=== PATIENT | male | born 1995 | race Caucasian/White ===

== ENCOUNTER 2016-06-14 16:28 | Emergency (ER) | payer OTHER ==
--- NOTE | 2016-06-14 17:54 | DIAGNOSTIC IMAGING REPORT ---
PROCEDURE: XR CHEST 2 VIEW INDICATION: CHEST PAIN TECHNIQUE: PA and lateral views. COMPARISON: None. FINDINGS: Lungs are clear. Heart and mediastinum are normal. Thorax is normal. IMPRESSION: 1. Negative chest.
--- NOTE | 2016-06-14 18:36 | ED ORDER SUMMARY ---
..... Patient: ANA SALINAS OrderSheet [facility] VisitID: [id number] [place] [address] 21y, M Registration Date/Time: 06/14/2016 ORDER SHEET Weight: 74.8 kg (stated) Allergies: No Known Drug Allergy GENERAL ORDERS: Chest 2V Urgent (17:10 06/14/2016 HBivens A.R.N.P.) (Ack 17:24 LNations ER Tech1) (17:34 KKnebel R.N.) EKG - ER Stat (17:10 06/14/2016 HBivens A.R.N.P.) (17:24 LNations ER Tech1) MEDICATION ORDERS: IV FLUIDS: IV Saline Lock (17:30 06/14/2016 DDean R.N. per protocol) (17:31 DDean R.N.) Toradol IV 30 mg (NOW) (17:52 06/14/2016 DDean R.N. verbal order read back to HBivens A.R.N.P.) (Ack 17:52 DDean R.N.) (17:58 DDean R.N.) ORDER SHEET NOTES: [Electronically signed by Sera Lancaster R.N. (18:49 06/14/2016)] [Electronically signed by Megan Mccauley.R.N.P. (21:15 06/14/2016)] [Electronically locked/signed by Sera Lancaster R.N. (18:49 06/14/2016)]
--- NOTE | 2016-06-14 18:36 | ED ORDER SUMMARY ---
..... Patient: ANA SALINAS OrderSheet [facility] VisitID: [id number] [place] [address] 21y, M Registration Date/Time: 06/14/2016 ORDER SHEET Weight: 74.8 kg (stated) Allergies: No Known Drug Allergy GENERAL ORDERS: Chest 2V Urgent (17:10 06/14/2016 HBivens A.R.N.P.) (Ack 17:24 LNations ER Tech1) (17:34 KKnebel R.N.) EKG - ER Stat (17:10 06/14/2016 HBivens A.R.N.P.) (17:24 LNations ER Tech1) MEDICATION ORDERS: IV FLUIDS: IV Saline Lock (17:30 06/14/2016 DDean R.N. per protocol) (17:31 DDean R.N.) Toradol IV 30 mg (NOW) (17:52 06/14/2016 DDean R.N. verbal order read back to HBivens A.R.N.P.) (Ack 17:52 DDean R.N.) (17:58 DDean R.N.) ORDER SHEET NOTES: [Electronically signed by Sera Lancaster R.N. (18:49 06/14/2016)] [Electronically signed by Megan Mccauley.R.N.P. (21:15 06/14/2016)] [Electronically locked/signed by Sera Lancaster R.N. (18:49 06/14/2016)]
--- NOTE | 2016-06-14 18:36 | ED CLINICAL REPORT ---
Clinical Report - Physicians/Mid Levels [facility] [address] [place] [address] 06/14/2016 16:29 Patient: ANA SALINAS Time Seen: 16:40; initial patient contact, initial documentation, patient care assumed. Arrived- By private vehicle. Historian- patient. HISTORY OF PRESENT ILLNESS Chief Complaint: CHEST PAIN and DISCOMFORT. At its maximum, severity described as moderate. When seen in the E.D., severity described as moderate. Modifying factors- worsened by movement and deep breaths. Not relieved by anything. This started just prior to arrival and is still present. It is described as pressure, tightness and "pain" and it is described as located in the left chest area and radiating to the left upper extremity. No nausea, vomiting, difficulty breathing or diaphoresis. Similar symptoms previously: None. Recent medical care: Not recently seen/assessed. REVIEW OF SYSTEMS No fever, cough or pedal edema. All systems otherwise negative, except as recorded above. PAST HISTORY See nurses notes. PROBLEMS: Asthma. --16:29 Faiza Barbosa R.N. ADDITIONAL SURGERIES: no known surgeries. SOCIAL HISTORY Light tobacco smoker. Occasional alcohol use. History of occasional drug use: marijuana. No recent travel. Is a local resident. FAMILY HISTORY Negative. ADDITIONAL NOTES The nursing notes have been reviewed with agreement regarding the chief complaint, HPI, ROS, PMH and patient medications and allergies. PHYSICAL EXAM Vital Signs: 06/14/2016 16:26 BP: 135/85. HR: 74. RR: 18. O2 saturation: 99%. Temp: 98.4 F. Pain level now: 8/10. Have been reviewed as normal and appear to be correct. Appearance: Alert. Oriented X3. No acute distress. Eyes: Pupils equal, round and reactive to light. Eyes normal inspection. ENT: Ears normal. Nose normal. Pharynx normal. Neck: Normal inspection. Neck supple. CVS: Normal heart rate and rhythm. Heart sounds normal. Pulses normal. Respiratory: No respiratory distress. Chest tender. Chest pain reproducible with palpation of the costal cartilage, costochondral junction, sternum, anterior and lateral chest wall and lateral ribs, with movement of the trunk and with deep breathing. Breath sounds normal. Abdomen: Soft and nontender. Back: Normal external inspection. Skin: Skin warm and dry. Normal skin color. No rash. Normal skin turgor. Extremities: Extremities exhibit normal ROM. No lower extremity edema. Neuro: Oriented X 3. No motor deficit. No sensory deficit. LABS, X-RAYS, AND EKG EKG: EKG time: (1716). No acute process. No acute ischemia. Normal EKG. Rate: 77. Normal EKG. The study has been interpreted contemporaneously by me (and dr rodrigues). The EKG appears to be a good tracing. Interpretation time: 172. Chest X-ray: Normal Chest X-Ray. (IMPRESSION: 1. Negative chest. Electronically Final signed by:Harjit Martínez MD 06/14/2016 5:54:39 PM). The X-rays were interpreted by the radiologist and contemporaneously by me. PROGRESS AND PROCEDURES Patient counseled in person regarding the patient's stable condition, test results and diagnosis. 18:33. Differential Diagnosis: I considered muscle strain, costochondritis, myositis, pleurisy, myocardial infarction, intermediate coronary syndrome, unstable angina, angina, aortic dissection, mitral valve prolapse, pericarditis, pulmonary embolism, pneumonia, gastroesophageal reflux disease, esophagitis and esophageal spasm as a possible cause of chest pain in this patient. This is a partial list of diagnoses considered. (substance abuse). Above considerations are based on history, physical exam, X-Ray data and EKG. Differential diagnosis was discussed with patient. Disposition: Discharged home in good and improved condition (18:35). Condition: good and stable. CLINICAL IMPRESSION Chest wall pain .12 lead EKG performed. INSTRUCTIONS Do not work tomorrow. Warnings: GENERAL WARNINGS: Return or contact your physician immediately if your condition worsens or changes unexpectedly, if not improving as expected, or if other problems arise. SPECIFICALLY, return if you develop chest, neck, jaw, shoulder, arm, or back pain, difficulty breathing, a fluttering sensation in your chest, lightheadedness, fainting, excessive fatigue, or sudden sweating. Prescription Medications: Naproxen 500 mg tablets: take 1 orally every 12 hours as needed for pain. Dispense twenty (20). No refills. Follow-up: Follow up with your doctor in about two days even if well. Call for an appointment. Summary of care provided to patient. Understanding of the discharge instructions verbalized by patient. (Electronically signed by Megan Mccauley A.R.N.P. 06/14/2016 21:15)
--- NOTE | 2016-06-14 18:36 | ED NURSING NOTES ---
Clinical Report - Nurses [facility] [address] [place] [address] 06/14/2016 16:29 Patient: ANA SALINAS TRIAGE Triage time 16:26. Acuity: LEVEL 3. Chief Complaint: CHEST PAIN. Alert. No acute distress. NATA COMA SCORE: Nata Coma Scale: 15- eyes open spontaneously (4); best verbal response- oriented x 4 (5); best motor response- obeys commands (6). --16:32 Faiza Barbosa R.N. 16:26 06/14/16. BP: 135/85. HR: 74. RR: 18. O2 saturation: 99% on room air. Temp: 98.4 F (oral). Pain level now: 8/10. --16:32 Faiza Barbosa R.N. Weight: 74.8 kg stated. Height/Length: 66 inches Per Patient. BMI: 26.6. --16:30 Faiza Barbosa R.N. Medications None. --16:28 Faiza Barbosa R.N. Medication/allergy information source: the patient. --16:32 Faiza Barbosa R.N. Allergies No Known Drug Allergy. --16:28 Faiza Barbosa R.N. History Arrived by private vehicle. Historian: patient. Primary physician (none). Describes the quality as tightness and (constant). Relates location as in the left chest area and left arm. Notes pain level as 8/10 on arrival. Provoking / relieving factors: not worsened by anything. Relieved by nothing. ( had caffeine overdose about a year ago with similar symptoms, had some zipfizz to drink). The patient has had difficulty breathing. No sweating episodes, nausea or vomiting. SOCIAL HX: Smoker- current status unknown (no). Occasional alcohol use. History of drug use: marijuana. (on tuesday). FALL RISK ASSESSMENT: Fall risk assessment completed. No fall risk identified. FUNCTIONAL ASSESSMENT: Functional assessment: no impairments noted. LEARNING NEEDS ASSESSMENT: The learning needs assessment revealed no barriers. --16:32 Faiza Barbosa R.N. PROBLEMS: Asthma. --16:29 Faiza Barbosa R.N. ADDITIONAL SURGERIES: no known surgeries. Assessment GENERAL / NEURO / PSYCH: The patient is awake and alert, is oriented and cooperative and appears anxious. RESPIRATORY: Respirations not labored. SKIN: Skin is warm and dry. --16:32 Faiza Barbosa R.N. Interventions ID band on patient. To treatment room. --16:32 Faiza Barbosa R.N. PHYSICAL ASSESSMENT 16:33 06/14/16. To room via stretcher. Patient gowned. GENERAL / NEURO / PSYCH: The patient is awake and alert, is oriented and cooperative and appears anxious. He has poor eye contact. RESPIRATORY: Respirations not labored. CVS: Cardiac rhythm: sinus rhythm. SKIN: Skin is warm and dry. --16:34 Faiza Barbosa R.N. NURSING PROGRESS NOTES 16:33 06/14/16. advertising copywriter, pulse oximeter and NIBP monitor placed on patient. Patient gowned. Head of bed elevated. Call light placed in reach. Side rails up x 2. Bed placed in lowest position. Brakes of bed on. --16:34 Faiza Barbosa R.N. 16:35. Care transferred and report received. --16:52 Sera Lancaster R.N. 16:45. Patient ID band checked for patient name and birthdate: patient confirmed urine collected with return of yellow-colored clear urine; sample sent to lab for urinalysis and culture. Specimen labeled in the presence of the patient. --16:52 Sera Lancaster R.N. 16:58. Assisted patient with urinal (voided 500 ml). --16:58 Faiza Barbosa R.N. 17:02 06/14/2016 Site #1 started via IV in the right antecubital space with an 20g angiocath, with aseptic technique and good blood return; one attempt. Blood drawn: rainbow set. Labeled in the presence of the patient and sent to the lab. Saline lock flushed with 10 mL saline. --17:02 Faiza Barbosa R.N. 17:20. Patient transported to radiology by stretcher with tech. --17:30 Sera Lancaster R.N. 17:31 06/14/16. Patient returned from radiology by stretcher with tech. --17:31 Sera Lancaster R.N. EKG time: (1716). EKG was ordered, performed by a tech and shown to the ED physician. --17:39 Aundrea Merry, Tech1 17:48 06/14/16. BP: 133/71. HR: 77. O2 saturation: 100%. Pain level now: 10/18. --17:49 Lori Montoya R.N. 17:53 06/14/2016 Toradol IVP 30 mg given over 1 minute(s) via site #1. IV patency established. IV site checked: no pain, redness, or swelling. IV flushed thoroughly pre- and post-medication administration. IVP given by RN. --17:58 Sera Lancaster R.N. 17:55. ( Pt given meds for shoulder pain, family at bedside.). --17:59 Sera Lancaster R.N. 18:30 06/14/2016 Site #1 removed upon discharge. Bandaid applied. --18:49 Sera Lancaster R.N. 18:30 06/14/2016 IV Saline Lock Drip IV Discontinued: bag #1 STOPPED upon discharge. Total amount infused: 0 mL. IV patency established. IV site checked: no pain, redness, or swelling. IV flushed thoroughly. --18:48 Sera Lancaster R.N. DISPOSITION / DISCHARGE 18:40. Condition at departure: improved and stable. No learning barriers present. Discharge instructions provided and reviewed with the patient and family. Reviewed medication(s) (naproxyn). Patient and family verbalized understanding. Written instructions provided in Burkinan. The patient was discharged home and accompanied by family. He left the Emergency Department ambulatory and via private vehicle. Family member driving. --18:48 Sera Lancaster R.N. 18:46 06/14/16. BP: 124/64. HR: 72. RR: 18. O2 saturation: 99%. Temp: deferred. Pain level now: 07/19. --18:48 Sera Lancaster R.N. Locked/Released at 06/14/2016 18:49 by Sera Lancaster R.N.
--- NOTE | 2016-06-14 21:16 | ED MED RECONCILIATION SUMMARY ---
Patient: ANA SALINAS Medication Reconciliation Report [facility] VisitID: [id number] [place] [address] 21y, M Registration Date/Time: 06/14/2016 Weight: 74.8 kg Height/Length: 66 in. BMI: 26.6 ALLERGIES: No Known Drug Allergy The patient's Home Medications are listed below: NONE. The source(s) of the original Home Medication information: patient The following Medications were given to the patient in the Emergency Department: Toradol [IVP] IVP 30 mg, administered: 06/14/2016 5:53:00 PM The following Medications were prescribed to the patient: Naproxen 500 mg tablets: take 1 orally every 12 hours as needed for pain. Dispense twenty (20). No refills. -- Megan Mccauley A.R.N.P.
--- NOTE | 2016-06-14 21:16 | ED MED RECONCILIATION SUMMARY ---
Patient: ANA SALINAS Medication Reconciliation Report [facility] VisitID: [id number] [place] [address] 21y, M Registration Date/Time: 06/14/2016 Weight: 74.8 kg Height/Length: 66 in. BMI: 26.6 ALLERGIES: No Known Drug Allergy The patient's Home Medications are listed below: NONE. The source(s) of the original Home Medication information: patient The following Medications were given to the patient in the Emergency Department: Toradol [IVP] IVP 30 mg, administered: 06/14/2016 5:53:00 PM The following Medications were prescribed to the patient: Naproxen 500 mg tablets: take 1 orally every 12 hours as needed for pain. Dispense twenty (20). No refills. -- Megan Mccauley A.R.N.P.
--- NOTE | 2016-06-14 21:16 | ED DISCHARGE INSTRUCTIONS ---
Patient: ANA SALINAS General Instructions [facility] VisitID: [id number] [place] [address] 21y, M Registration Date/Time: 06/14/2016 Chest wall pain .12 lead EKG performed. INSTRUCTIONS Do not work tomorrow. Warnings: GENERAL WARNINGS: Return or contact your physician immediately if your condition worsens or changes unexpectedly, if not improving as expected, or if other problems arise. SPECIFICALLY, return if you develop chest, neck, jaw, shoulder, arm, or back pain, difficulty breathing, a fluttering sensation in your chest, lightheadedness, fainting, excessive fatigue, or sudden sweating. Prescription Medications: Naproxen 500 mg tablets: take 1 orally every 12 hours as needed for pain. Dispense twenty (20). No refills. Follow-up: Follow up with your doctor in about two days even if well. Call for an appointment. Summary of care provided to patient. Understanding of the discharge instructions verbalized by patient. ADDITIONAL INFORMATION Chest Wall Pain: Costochondritis The chest pain that you have had today is caused by Costochondritis. This condition is due to an inflammation of the cartilage joining the ribs to the breastbone. It is not caused by heart or lung problems. Although the exact cause for costochondritis is not known, it often occurs during times of emotional stress. It can be painful, but it is not dangerous. It usually disappears within one to two weeks, but may recur. Rarely, a more serious condition may cause symptoms similar to costochondritis; therefore, watch for the warning signs listed below. Home Care: If you feel that emotional stress is a cause of your condition, try to identify sources of that stress. It may not be obvious! Learn ways to deal with the stress in your life such as regular exercise, muscle relaxation, meditation, or simply taking time out for yourself. For more information about this, consult your doctor or go to a local bookstore and review books and tapes available on the subject of stress reduction. You may use acetaminophen (Tylenol) or ibuprofen (Motrin, Advil) to control pain, unless another pain medicine was prescribed. [ NOTE: If you have liver disease or ever had a stomach ulcer, talk with your doctor before using these medicines.] The use of heat (hot wet compress or heating pad) with or without local analgesic creams (Deep Heat Rub, Teddy Chery) will be helpful to reduce pain. Follow Up with your doctor as directed or sooner if you do not start to improve within the next two days. Get Prompt Medical Attention if any of the following occur: A change in the type of pain: if it feels different, becomes more severe, lasts longer, or spreads into your shoulder, arm, neck, jaw or back Shortness of breath or increased pain with breathing Weakness, dizziness, or fainting Cough with dark colored sputum (phlegm) or blood Abdominal pain Dark red or black stools Fever of 100.4F (38C) or higher, or as directed by your healthcare provider Naproxen Sodium Oral tablet What is this medicine? NAPROXEN (na PROX en) is a non-steroidal anti-inflammatory drug (NSAID). It is used to reduce swelling and to treat pain. This medicine may be used for dental pain, headache, or painful monthly periods. It is also used for painful joint and muscular problems such as arthritis, tendinitis, bursitis, and gout. How should I use this medicine? Take this medicine by mouth with a glass of water. Follow the directions on the prescription label. Take it with food if your stomach gets upset. Try to not lie down for at least 10 minutes after you take it. Take your medicine at regular intervals. Do not take your medicine more often than directed. Long-term, continuous use may increase the risk of heart attack or stroke. A special MedGuide will be given to you by the pharmacist with each prescription and refill. Be sure to read this information carefully each time. Talk to your senior software quality analyst regarding the use of this medicine in children. Special care may be needed. What side effects may I notice from receiving this medicine? Side effects that you should report to your doctor or health transitional care nurse as soon as possible: black or bloody stools, blood in the urine or vomit blurred vision chest pain difficulty breathing or wheezing nausea or vomiting severe stomach pain skin rash, skin redness, blistering or peeling skin, hives, or itching slurred speech or weakness on one side of the body swelling of eyelids, throat, lips unexplained weight gain or swelling unusually weak or tired yellowing of eyes or skin Side effects that usually do not require medical attention (report to your doctor or health transitional care nurse if they continue or are bothersome): constipation headache heartburn What may interact with this medicine? alcohol aspirin cidofovir diuretics lithium methotrexate other drugs for inflammation like ketorolac or prednisone pemetrexed probenecid warfarin What if I miss a dose? If you miss a dose, take it as soon as you can. If it is almost time for your next dose, take only that dose. Do not take double or extra doses. Where should I keep my medicine? Keep out of the reach of children. Store at room temperature between 15 and 30 degrees C (59 and 86 degrees F). Keep container tightly closed. Throw away any unused medicine after the expiration date. What should I tell my health care provider before I take this medicine? They need to know if you have any of these conditions: asthma cigarette smoker drink more than 3 alcohol containing drinks a day heart disease or circulation problems such as heart failure or leg edema (fluid retention) high blood pressure kidney disease liver disease stomach bleeding or ulcers an unusual or allergic reaction to naproxen, aspirin, other NSAIDs, other medicines, foods, dyes, or preservatives or trying to get breast-feeding What should I watch for while using this medicine? Tell your doctor or health transitional care nurse if your pain does not get better. Talk to your doctor before taking another medicine for pain. Do not treat yourself. This medicine does not prevent heart attack or stroke. In fact, this medicine may increase the chance of a heart attack or stroke. The chance may increase with longer use of this medicine and in people who have heart disease. If you take aspirin to prevent heart attack or stroke, talk with your doctor or health transitional care nurse. Do not take other medicines that contain aspirin, ibuprofen, or naproxen with this medicine. Side effects such as stomach upset, nausea, or ulcers may be more likely to occur. Many medicines available without a prescription should not be taken with this medicine. This medicine can cause ulcers and bleeding in the stomach and intestines at any time during treatment. Do not smoke cigarettes or drink alcohol. These increase irritation to your stomach and can make it more susceptible to damage from this medicine. Ulcers and bleeding can happen without warning symptoms and can cause . You may get drowsy or dizzy. Do not drive, use machinery, or do anything that needs mental alertness until you know how this medicine affects you. Do not stand or sit up quickly, especially if you are an older patient. This reduces the risk of dizzy or fainting spells. This medicine can cause you to bleed more easily. Try to avoid damage to your teeth and gums when you brush or floss your teeth. You have been given the following additional information: Chest Wall Pain, Costochondritis Naproxen Sodium Oral tablet Do not work tomorrow. (Electronically signed by Megan Mccauley A.R.N.P. 06/14/2016 21:15)
--- NOTE | 2016-06-14 21:16 | ED DISCHARGE INSTRUCTIONS ---
Patient: ANA SALINAS General Instructions [facility] VisitID: [id number] [place] [address] 21y, M Registration Date/Time: 06/14/2016 Chest wall pain .12 lead EKG performed. INSTRUCTIONS Do not work tomorrow. Warnings: GENERAL WARNINGS: Return or contact your physician immediately if your condition worsens or changes unexpectedly, if not improving as expected, or if other problems arise. SPECIFICALLY, return if you develop chest, neck, jaw, shoulder, arm, or back pain, difficulty breathing, a fluttering sensation in your chest, lightheadedness, fainting, excessive fatigue, or sudden sweating. Prescription Medications: Naproxen 500 mg tablets: take 1 orally every 12 hours as needed for pain. Dispense twenty (20). No refills. Follow-up: Follow up with your doctor in about two days even if well. Call for an appointment. Summary of care provided to patient. Understanding of the discharge instructions verbalized by patient. ADDITIONAL INFORMATION Chest Wall Pain: Costochondritis The chest pain that you have had today is caused by Costochondritis. This condition is due to an inflammation of the cartilage joining the ribs to the breastbone. It is not caused by heart or lung problems. Although the exact cause for costochondritis is not known, it often occurs during times of emotional stress. It can be painful, but it is not dangerous. It usually disappears within one to two weeks, but may recur. Rarely, a more serious condition may cause symptoms similar to costochondritis; therefore, watch for the warning signs listed below. Home Care: If you feel that emotional stress is a cause of your condition, try to identify sources of that stress. It may not be obvious! Learn ways to deal with the stress in your life such as regular exercise, muscle relaxation, meditation, or simply taking time out for yourself. For more information about this, consult your doctor or go to a local bookstore and review books and tapes available on the subject of stress reduction. You may use acetaminophen (Tylenol) or ibuprofen (Motrin, Advil) to control pain, unless another pain medicine was prescribed. [ NOTE: If you have liver disease or ever had a stomach ulcer, talk with your doctor before using these medicines.] The use of heat (hot wet compress or heating pad) with or without local analgesic creams (Deep Heat Rub, Teddy Chery) will be helpful to reduce pain. Follow Up with your doctor as directed or sooner if you do not start to improve within the next two days. Get Prompt Medical Attention if any of the following occur: A change in the type of pain: if it feels different, becomes more severe, lasts longer, or spreads into your shoulder, arm, neck, jaw or back Shortness of breath or increased pain with breathing Weakness, dizziness, or fainting Cough with dark colored sputum (phlegm) or blood Abdominal pain Dark red or black stools Fever of 100.4F (38C) or higher, or as directed by your healthcare provider Naproxen Sodium Oral tablet What is this medicine? NAPROXEN (na PROX en) is a non-steroidal anti-inflammatory drug (NSAID). It is used to reduce swelling and to treat pain. This medicine may be used for dental pain, headache, or painful monthly periods. It is also used for painful joint and muscular problems such as arthritis, tendinitis, bursitis, and gout. How should I use this medicine? Take this medicine by mouth with a glass of water. Follow the directions on the prescription label. Take it with food if your stomach gets upset. Try to not lie down for at least 10 minutes after you take it. Take your medicine at regular intervals. Do not take your medicine more often than directed. Long-term, continuous use may increase the risk of heart attack or stroke. A special MedGuide will be given to you by the pharmacist with each prescription and refill. Be sure to read this information carefully each time. Talk to your drilling supervisor regarding the use of this medicine in children. Special care may be needed. What side effects may I notice from receiving this medicine? Side effects that you should report to your doctor or health manager intensive care as soon as possible: black or bloody stools, blood in the urine or vomit blurred vision chest pain difficulty breathing or wheezing nausea or vomiting severe stomach pain skin rash, skin redness, blistering or peeling skin, hives, or itching slurred speech or weakness on one side of the body swelling of eyelids, throat, lips unexplained weight gain or swelling unusually weak or tired yellowing of eyes or skin Side effects that usually do not require medical attention (report to your doctor or health manager intensive care if they continue or are bothersome): constipation headache heartburn What may interact with this medicine? alcohol aspirin cidofovir diuretics lithium methotrexate other drugs for inflammation like ketorolac or prednisone pemetrexed probenecid warfarin What if I miss a dose? If you miss a dose, take it as soon as you can. If it is almost time for your next dose, take only that dose. Do not take double or extra doses. Where should I keep my medicine? Keep out of the reach of children. Store at room temperature between 15 and 30 degrees C (59 and 86 degrees F). Keep container tightly closed. Throw away any unused medicine after the expiration date. What should I tell my health care provider before I take this medicine? They need to know if you have any of these conditions: asthma cigarette smoker drink more than 3 alcohol containing drinks a day heart disease or circulation problems such as heart failure or leg edema (fluid retention) high blood pressure kidney disease liver disease stomach bleeding or ulcers an unusual or allergic reaction to naproxen, aspirin, other NSAIDs, other medicines, foods, dyes, or preservatives or trying to get breast-feeding What should I watch for while using this medicine? Tell your doctor or health manager intensive care if your pain does not get better. Talk to your doctor before taking another medicine for pain. Do not treat yourself. This medicine does not prevent heart attack or stroke. In fact, this medicine may increase the chance of a heart attack or stroke. The chance may increase with longer use of this medicine and in people who have heart disease. If you take aspirin to prevent heart attack or stroke, talk with your doctor or health manager intensive care. Do not take other medicines that contain aspirin, ibuprofen, or naproxen with this medicine. Side effects such as stomach upset, nausea, or ulcers may be more likely to occur. Many medicines available without a prescription should not be taken with this medicine. This medicine can cause ulcers and bleeding in the stomach and intestines at any time during treatment. Do not smoke cigarettes or drink alcohol. These increase irritation to your stomach and can make it more susceptible to damage from this medicine. Ulcers and bleeding can happen without warning symptoms and can cause . You may get drowsy or dizzy. Do not drive, use machinery, or do anything that needs mental alertness until you know how this medicine affects you. Do not stand or sit up quickly, especially if you are an older patient. This reduces the risk of dizzy or fainting spells. This medicine can cause you to bleed more easily. Try to avoid damage to your teeth and gums when you brush or floss your teeth. You have been given the following additional information: Chest Wall Pain, Costochondritis Naproxen Sodium Oral tablet Do not work tomorrow. (Electronically signed by Megan Mccauley A.R.N.P. 06/14/2016 21:15)
--- NOTE | 2016-06-14 21:16 | ED MAR SUMMARY ---
..... Medication Administration Record [facility] [address] [place] [address] Patient: ANA SALINAS Visit ID: [id number] 21y, M Weight: 74.8 kg Height/Length: 66 in BMI: 26.6 ALLERGIES: No Known Drug Allergy Given 17:53 06/14/2016 Tonny, Sera RSteveN. Medication Administered: TORADOL [IVP], Dose: 30 mg IVP over 1 minute(s), Site: #1 right AC. Medication Ordered: Toradol IV 30 mg (NOW).
--- NOTE | 2016-06-14 21:16 | ED MAR SUMMARY ---
..... Medication Administration Record [facility] [address] [place] [address] Patient: ANA SALINAS Visit ID: [id number] 21y, M Weight: 74.8 kg Height/Length: 66 in BMI: 26.6 ALLERGIES: No Known Drug Allergy Given 17:53 06/14/2016 Tonny, Sera RtSeveN. Medication Administered: TORADOL [IVP], Dose: 30 mg IVP over 1 minute(s), Site: #1 right AC. Medication Ordered: Toradol IV 30 mg (NOW).
== END 2016-06-14 18:40 | disposition home or self-care (01) ==
LOC: ED SRH 16:28
DX: R07.89 Other chest pain (principal); F17.210 Nicotine dependence, cigarettes, uncomplicated